=== PATIENT | female | born 1955 | race Caucasian/White ===

== ENCOUNTER 2022-10-31 07:21 | Inpatient (IN) | payer OTHER, MEDICAID ==
[~2022-10-31] VITALS: Ht 152.4 cm; Wt 43.1 kg
[2022-10-31] MEDS ORDERED: LORAZEPAM 2MG/ML CPJ IV ONE (07:45)
[2022-10-31 08:21] LABS: HEMATOCRIT. 40.6 % (36.0-48.0); HEMOGLOBIN. 13.2 g/dL (12.0-16.0); MEAN CORPUSCULAR HEMOGLOBIN 27.6 pg (28.0-32.0); MEAN CORPUSCULAR VOLUME 84.8 fL (81.0-99.0); PLATELET 263 x1000/uL (130-400); RED BLOOD CELL COUNT 4.79 mill/uL (4.2-5.4); RED CELL DISTRIBUTION WIDTH 14.2 % (11.6-14.6)
[2022-10-31 08:31] LABS: CHLORIDE 109 mEq/L (98-107)
[2022-10-31 08:35] LABS: PROTHROMBIN TIME 10.6 sec (9.6-11.0)
[2022-10-31 08:48] LABS: ETHANOL BLOOD < 10 mg/dL
[2022-10-31] MEDS ORDERED: IOHEXOL-350 100 ML BOTTLE ONE (12:17)
[2022-10-31 12:21] LABS: PLATELET ESTIMATE NORMAL
[2022-10-31 14:30] VITALS: BP 161/79
[2022-10-31] MEDS ORDERED: DIPHENHYDRAMINE 50MG/ML VIAL IV PRN (14:45)
[2022-10-31] MEDS ORDERED: IPRATROPIUM/ALBUTEROL 0.5-3(2.5)MG/3ML NEB HHN PRN (14:45)
[2022-10-31] MEDS ORDERED: ONDANSETRON HCL 4MG/2ML INJ IV PRN (14:45)
[2022-10-31] MEDS ORDERED: ACETAMINOPHEN 325MG TABLET PO PRN (14:45)
[2022-10-31] MEDS ORDERED: IPRATROPIUM BROMIDE (0.02%) 0.5MG/2.5ML NEB HHN PRN (14:45)
[2022-10-31] MEDS ORDERED: ALBUTEROL (0.083%) 2.5MG/3ML NEB HHN PRN (14:45)
[2022-10-31] MEDS ORDERED: CLONIDINE 0.1MG TABLET PO PRN (14:45)
[2022-10-31] MEDS: HYDRALAZINE 20MG/ML VIAL IV PRN (15:36)
[2022-10-31 16:42] LABS: BG BASE EXCESS 2.6 mmol/L (-2.0-2.0); BG CARBOXYHEMOGLOBIN 0.9 % (0.5-1.5); BG DEOXYHEMOGLOBIN 0.9 % (0.0-5.0); BG FRACTION INSPIRED OXYGEN 30; BG HCO3 ACT 24.8 mmol/L (22.0-26.0); BG METHEMOGLOBIN 0.4 % (0.0-1.5); BG OXYGEN SATURATION 99.1 % (92.0-98.5); BG OXYHEMOGLOBIN 97.8 % (94.0-97.0); BG PCO2 31.3 mmHg (35.0-45.0); BG PH 7.516 (7.350-7.450); BG PO2 140.6 mmHg (75.0-100.0); BG SAMPLE SITE LEFT RADIAL; BG TOTAL HEMOGLOBIN 14.4 g/dL (12.0-18.0); BG VENT MODE NASAL CANNULA
[2022-10-31] MEDS: LORAZEPAM 2MG/ML CPJ IV PRN (16:54)
[2022-10-31 19:59] VITALS: BP 111/63
[2022-10-31] MEDS ORDERED: ASPI-1160 PO (23:44)
[2022-10-31] MEDS ORDERED: CLON0.1T PO (23:44)
[2022-10-31] MEDS ORDERED: HYDR25TA PO (23:44)
[2022-10-31] MEDS ORDERED: HYDR100T31 PO (23:44)
[2022-10-31] MEDS ORDERED: ISOS10TA2 PO (23:44)
[2022-10-31] MEDS ORDERED: MIRT-89 PO (23:44)
[2022-10-31] MEDS ORDERED: ATOR-2 PO (23:44)
[2022-10-31] MEDS ORDERED: PANT40TA51 PO (23:44)
[2022-10-31] MEDS ORDERED: AMLO10TA80 PO (23:44)
[2022-10-31] MEDS ORDERED: LOSA100T32 PO (23:44)
[2022-10-31] MEDS ORDERED: METO100T16 PO (23:44)
[2022-11-01 00:04] VITALS: BP 132/72
[2022-11-01 04:00] VITALS: BP 169/96
[2022-11-01] MEDS: HYDRALAZINE 20MG/ML VIAL IV PRN (05:30)
[2022-11-01 06:23] LABS: CHLORIDE 110 mEq/L (98-107)
[2022-11-01 06:32] LABS: BASOPHILS % 0.3 % (0.0-2.0); EOSINOPHILS % 0.7 % (0.0-5.0); HEMATOCRIT. 37.4 % (36.0-48.0); HEMOGLOBIN. 12.9 g/dL (12.0-16.0); LYMPHOCYTES % 28.7 % (20.0-50.0); MEAN CORPUSCULAR VOLUME 84.1 fL (81.0-99.0); MEAN PLATELET VOLUME 9.7 fl (7.4-10.4); MONOCYTES % 7.8 % (2.0-8.0); NEUTROPHILS % 62.5 % (40.0-76.0); PLATELET 239 x1000/uL (130-400); RED BLOOD CELL COUNT 4.45 mill/uL (4.2-5.4); RED CELL DISTRIBUTION WIDTH 14.3 % (11.6-14.6)
[2022-11-01 08:00] VITALS: BP 145/74
[2022-11-01] MEDS ORDERED: DEXTROSE 50% WATER 50ML SYRINGE IV PRN (08:30)
[2022-11-01 12:00] VITALS: BP 160/83
[2022-11-01] MEDS ORDERED: LORAZEPAM 2MG/ML CPJ IV NR (12:00)
[2022-11-01] MEDS: INSULIN LISPRO 100 UNITS/ML SUBCUT SCH ×3 (13:06→20:53)
[2022-11-01] MEDS: BLOOD SUGAR DIAGNOSTIC STRIP TEST SCH ×3 (13:06→20:51)
[2022-11-01] MEDS: ASPIRIN 81MG TABLET PO SCH (13:23)
[2022-11-01] MEDS: PANTOPRAZOLE 40MG DR TABLET PO SCH (13:23)
[2022-11-01] MEDS: LACTULOSE 20G/30ML UDC PO SCH ×2 (13:31→20:51)
[2022-11-01] MEDS: AMLODIPINE 10MG TABLET PO SCH (13:31)
[2022-11-01] MEDS: LORAZEPAM 2MG/ML CPJ IV PRN (13:57)
[2022-11-01 16:00] VITALS: BP 130/72
[2022-11-01] MEDS: ISOSORBIDE DINITRATE 10MG TABLET PO SCH ×2 (16:58→16:59)
[2022-11-01 20:00] VITALS: BP 137/77
[2022-11-01] MEDS ORDERED: MIRTAZAPINE 15MG TABLET PO SCH (21:00)
[2022-11-01] MEDS ORDERED: ATORVASTATIN CALCIUM 40MG TABLET PO SCH (21:00)
[2022-11-02 00:05] VITALS: BP 135/72
[2022-11-02 04:00] VITALS: BP 145/69
[2022-11-02] MEDS: LORAZEPAM 2MG/ML CPJ IV PRN (05:14)
[2022-11-02] MEDS: LACTULOSE 20G/30ML UDC PO SCH ×2 (05:14→14:12)
[2022-11-02] MEDS ORDERED: METOPROLOL TARTRATE 5MG/5ML VIAL IV NR (05:15)
[2022-11-02] MEDS: BLOOD SUGAR DIAGNOSTIC STRIP TEST SCH ×3 (05:27→17:49)
[2022-11-02] MEDS: INSULIN LISPRO 100 UNITS/ML SUBCUT SCH ×3 (05:53→17:50)
[2022-11-02 08:00] VITALS: BP 145/63
[2022-11-02] MEDS ORDERED: LORAZEPAM 2MG/ML CPJ IV NR (08:30)
[2022-11-02] MEDS ORDERED: LORAZEPAM 0.5MG TABLET PO ONE (08:30)
[2022-11-02] MEDS ORDERED: LORAZEPAM 2MG/ML CPJ IV PRN (08:30)
[2022-11-02] MEDS ORDERED: METOPROLOL TARTRATE 100MG TABLET PO SCH (09:00)
[2022-11-02] MEDS: ISOSORBIDE DINITRATE 10MG TABLET PO SCH ×3 (10:31→17:00)
[2022-11-02] MEDS: PANTOPRAZOLE 40MG DR TABLET PO SCH (10:32)
[2022-11-02] MEDS: AMLODIPINE 10MG TABLET PO SCH (10:32)
[2022-11-02] MEDS: ASPIRIN 81MG TABLET PO SCH (10:32)
[2022-11-02 12:00] VITALS: BP 110/60
[2022-11-02 16:00] VITALS: BP 124/74
[2022-11-02 17:47] VITALS: BP 124/74
== END 2022-11-02 17:45 | disposition home or self-care (01) | DRG 69 ==
LOC: ER 07:21 → 7WST 11:11 → EDBEDREQTM 11:13 → EDBEDREQ 11:13
PROVIDERS: ADMIT Family Medicine Adult Medicine; ATTEND Family Medicine Adult Medicine
PROC: 4A00X4Z Measurement of Central Nervous Electrical Activity, External Approach (ICD-10-PCS; principal; 2022-11-02)
DX: G45.9 Transient cerebral ischemic attack, unspecified (principal); K76.82 Hepatic encephalopathy; F41.0 Panic disorder [episodic paroxysmal anxiety]; I10 Essential (primary) hypertension; E11.9 Type 2 diabetes mellitus without complications; G93.89 Other specified disorders of brain; Z79.899 Other long term (current) drug therapy; Z86.73 Personal history of transient ischemic attack (TIA), and cerebral infarction without residual deficits; Z79.82 Long term (current) use of aspirin
CPT/HCPCS: 36415; 36600; 70496; 70498; 70551; 71045; 80053; 80320; 82140; 82375; 82805; 82962; 83605; 83880; 84443; 84484; 85025; 93005; 93970; 95816; 97163; 97530; 99291; J0360; J1200; J1815; J2060; J3490; Q9967; G0480